=== PATIENT | female | born 1990 | race Hispanic/Latino ===

== ENCOUNTER 2025-06-05 06:22 | Day surgery (SDC) | payer OTHER ==
[2025-06-04 09:46] LABS: IMMATURE GRANULOCYTE ABSOLUTE 0.01 K/uL (0-1); NUCLEATED RED BLOOD CELLS 0.0 % (0.0-0.19); PLATELET COUNT (AUTO) 228 K/uL (130-400); RED BLOOD CELL COUNT(AUTO) 4.61 MIL/uL (4.00-5.50); RED CELL DISTRIBUTION WIDTH 12.6 % (11.0-15.5); WHITE BLOOD COUNT (AUTO) 4.6 K/uL (4.8-10.8)
[2025-06-04 09:53] VITALS: BP 100/68; PULSE 73; RESP 17; TEMP 98.2
[2025-06-04 09:57] LABS: INR 1.0 (0.85-1.15)
[2025-06-04 09:59] LABS: CREATININE 0.6 mg/dL (0.5-1.0); GLOMERULAR FILTR. RATE CALC 119.0 mL/min (>90); GLUCOSE,RANDOM 95.0 mg/dL (70-105); SODIUM SERUM 140.0 mmol/L (136-145); UREA NITROGEN, BLOOD 9.0 mg/dL (7-18)
--- NOTE | 2025-06-04 11:54 | NUR ---
REPORT DR DAVE REVIEWED EKG. OK TO PROCEED
--- NOTE | 2025-06-04 13:03 | EKG ---
[facility] Test Date: 2025-06-04 Test Time: 09:38:09 Pat Name: GREG PEACOCK Department: [facility] Room: [facility] Gender: F [employer] Person: [id number] : 1990 Requested By: RANJITH AGUILAR Order Number: [id number] Reading MD: Ranjith Donnelly Measurements Intervals [place] Rate: 69 P: 51 [place]: 147 QRS: 4 QRSD: 77 T: 3 QT: 419 QTc: 449 Interpretive Statements Sinus arrhythmia No previous ECG available for comparison Electronically Signed On 06-09-2025 13:03:30 TYING MACHINE OPERATOR LUMBER by Ranjith Donnelly Please click the below link to view image of tracing.
[2025-06-05] VITALS (15 sets, daily range): BP systolic 98–111; BP diastolic 50–83; PULSE 67–96; RESP 14–19; TEMP 97.1–97.7
[~2025-06-05] VITALS: Ht 154.9 cm; Wt 70.4 kg
[~2025-06-05 06:22] MED LIST: LACTATED RINGERS 1000ML 1,000 ML IV ONE
[2025-06-05] MEDS ORDERED: LIDOCAINE PF 100MG/5ML (2%) SYRINGE 5ML ONE (07:28)
[2025-06-05] MEDS ORDERED: MIDAZOLAM HCL 1 MG/ML 2ML VIAL ONE (07:29)
[2025-06-05] MEDS ORDERED: FAMOTIDINE 20MG VIAL IV ONE (07:33)
[2025-06-05] MEDS: INDOCYANINE GREEN 25 MG VIAL IJ ONE (08:00)
[2025-06-05] MEDS ORDERED: PROMETHAZINE HCL 25 MG/ML 1ML AMPULE IM PRN (08:30)
--- NOTE | 2025-06-05 09:32 | OP ---
Operative Note: DATE OF PROCEDURE: 06/05/25 SURGEON: ROMEO AGUILAR MD MUSIC GRAPHER: Lane Aguilar MD ANESTHESIA: Local and General ANESTHESIOLOGIST/HARVESTING SUPERVISOR: [facility] [place] team PREOPERATIVE DIAGNOSIS: Concern for fatty liver and EDDY, biliary dyskinesia POSTOPERATIVE DIAGNOSIS: As above SYNOPSIS: Core needle liver biopsy and cholecystectomy with IC green cholangiogram performed without complication. PROCEDURE: 1. Robotic assisted cholecystectomy with IC green cholangiogram 2. Core needle liver biopsy, laparoscopic assisted ESTIMATED BLOOD LOSS: Minimal, less than 25 cc INDICATIONS: As above DESCRIPTION OF PROCEDURE: After standard precautions and preparations were undertaken a Veress needle and optical trocar were used to enter the abdominal cavity. All other instruments were placed under direct vision. The robotic system was docked in the standard fashion. We began with a liver biopsy portion of the case. A core needle liver biopsy device was utilized to obtain two separate core needle liver biopsies from random locations of the liver. The area was made hemostatic we proceeded with the remainder of the case. We elevated the fundus of the gallbladder cephalad and began working around the infundibulum. We are able to identify our critical view of safety by identifying a single vascular and a single ductal structure entering the infundibulum. The anatomy was confirmed by the use of IC-Green and fusion and firefly visual technology to perform an IC green cholangiogram. We are able to eliminate the ductal structures from the liver through the common hepatic duct to the common bile duct and the junction with the cystic duct and down towards the duodenum. With the anatomy confirmed we proceeded to place our clips and divide the duct and cystic artery. We the gallbladder from the gallbladder fossa utilizing monopolar ca utery. It was placed in an Endo-Catch bag and removed from the abdominal cavity without incident. Prior to ending the case all instrument counts were verified as correct including needles and sponges. ROMEO AGUILAR MD Jun 05, 2025 09:32
--- NOTE | 2025-06-05 09:34 | PN ---
GENERAL SURGERY PROGRESS NOTE Date/Time Patient Seen: [ 10/2024 at 9:30 a.m.] Problem List: [ ] Interval History: [ Postop day 0. Status post robot assisted cholecystectomy. Pain minimal and tolerable with the p.r.n. medication.] Physical Examination: GENERAL: [No acute distress.] ABD: [Incisions clean, dry and intact, Dermabond in place Vital Signs (last 8hr) Date Time Temp Pulse Resp B/P (MAP) Pulse Ox O2 Delivery O2 Flow Rate FiO2 06/05/25 06:30 97.2 96 18 111/83 98 Room Air 21 Laboratory: [ ] Hematology Labs: Test 06/04/25 09:30 Range/Units White Blood Count 4.6 L 4.8-10.8 K/uL Red Blood Count 4.61 4.00-5.50 MIL/uL Hemoglobin 13.4 12.0-16.0 g/dL Hematocrit 39.4 36-48 % Mean Corpuscular Volume 85.5 79-99 fL Mean Corpuscular Hemoglobin 29.1 27.0-33.0 pg Mean Corpuscular Hemoglobin Concent 34.0 32.0-36.0 g/dL Red Cell Distribution Width 12.6 11.0-15.5 % Platelet Count 228 130-400 K/uL Mean Platelet Volume 9.9 7.5-10.5 fL Immature Granulocyte % (Auto) 0.2 0-1 % Neutrophils (%) (Auto) 63.3 40.0-77.0 % Lymphocytes (%) (Auto) 27.0 21.0-51.0 % Monocytes (%) (Auto) 5.7 3.0-13.0 % Eosinophils (%) (Auto) 3.1 0.0-8.0 % Basophils (%) (Auto) 0.7 0.0-5.0 % Neutrophils # (Auto) 2.9 1.8-7.7 K/uL Lymphocytes # (Auto) 1.2 1.0-4.8 K/uL Monocytes # (Auto) 0.3 0.1-1.0 K/uL Eosinophils # (Auto) 0.14 0.00-0.70 K/uL Basophils # (Auto) 0.03 0.00-0.20 K/uL Absolute Immature Granulocyte (auto 0.01 0-1 K/uL Nucleated Red Blood Cells 0.0 0.0-0.19 % Chemistry Labs: Test 06/04/25 09:30 Range/Units Sodium Level 140 136-145 mmol/L Potassium Level 4.2 3.5-5.1 mmol/L Chloride Level 103 101-111 mmol/L Carbon Dioxide Level 29 21-32 mmol/L Blood Urea Nitrogen 9 7-18 mg/dL Creatinine 0.6 0.5-1.0 mg/dL Glomerular Filtration Rate Calc 119 >90 mL/min Random Glucose 95 70-105 mg/dL Total Calcium 8.6 8.5-10.1 mg/dL Serum Test, Qualitative NEGATIVE NEGATIVE Coagulation Labs: Test 06/04/25 09:30 Range/Units Prothrombin Time 10.6 9.6-11.6 SEC Prothromb Time International Ratio 1.00 0.85-1.15 Activated Partial Thromboplast Time 27.3 26.3-35.5 SEC Diagnostics / Radiology: [Copy/Paste Echos/Imaging Report here] Impression and Plan: [Plan is for discharge home in the next few hours as long as patient tolerating p.o., ambulatory and pain under control. Discussed with the patient and family. They understand and agree. ] AGNES AGUILAR PAC Jun 05, 2025 09:34
--- NOTE | 2025-06-05 11:05 | NUR ---
BOTH PT AND SPOUSE GIVEN VERBAL AND WRITTEN DISCHARGE INSTRUCTIONS IV REMOVED SITE ASYMPTOMATIC. PT DOES STATE SOME ABD SORENESS 09/09
== END 2025-06-05 11:30 | disposition home or self-care (01) ==
LOC: DAH 06:22
PROVIDERS: ATTEND Surgery
DX: K81.1 Chronic cholecystitis (principal); R10.11 Right upper quadrant pain; K75.9 Inflammatory liver disease, unspecified; R14.0 Abdominal distension (gaseous); K75.81 Nonalcoholic steatohepatitis (NASH); R93.2 Abnormal findings on diagnostic imaging of liver and biliary tract; Z79.899 Other long term (current) drug therapy
CPT/HCPCS: 80048; 84703; 85025; 85610; 85730; 86850; 86900; 86901; 36415; 93005; 47379; 47563; 88313; 88304; 88307; A6260; J1100; A4663; J7030; A4215 ×3; J7120; J1308; J3010 ×2; J0665; J3490 ×3; J2003; J2250; J2704; J2405 ×2; J2371; J0690; A4649 ×2; A4930; A4213; A4222; A4221; A4216; A4335; S2900; A4223 ×2; A4600